=== PATIENT | female | born 1980 | race Caucasian/White ===

== ENCOUNTER → 2022-06-24 | Outpatient (CLI) | payer BC, OTHER ==
[~2022-06-24] MED LIST: CATHETER FLUSH 10 ML SYR IV PRN; HOLD METFORMIN - RECEIVED CONTRAST 20 ML VIAL IV SCH; IOHEXOL 350 MG/ML 100 ML (OMNIPAQUE 350) VIAL IV ONE; NS 100 ML (IVPB) BAG IV ONE
[2022-06-24 11:22] LABS: BASOPHILS % (AUTO) 1 % (0-10); EOSINOPHILS # (AUTO) 0.2 10^3/uL (0.0-0.3); EOSINOPHILS % (AUTO) 3 % (0-10); HEMATOCRIT 36 % (35-52); HEMOGLOBIN 12.3 g/dL (11.5-16.0); LYMPHOCYTES # (AUTO) 1.8 10^3/uL (1.0-4.0); LYMPHOCYTES % (AUTO) 29 % (12-44); MEAN CORPUSCULAR HEMOGLOBIN 32 pg (25-34); MEAN CORPUSCULAR HGB CONC 34 g/dL (32-36); MEAN CORPUSCULAR VOLUME 93 fL (80-99); MEAN PLATELET VOLUME 11.9 fL (9.0-12.2); MONOCYTES # (AUTO) 0.5 10^3/uL (0.0-1.0); MONOCYTES % (AUTO) 7 % (0-12); NEUTROPHILS # (AUTO) 3.7 10^3/uL (1.8-7.8); NEUTROPHILS % (AUTO) 60 % (42-75); PLATELET COUNT 234 10^3/uL (130-400); WHITE BLOOD COUNT 6.2 10^3/uL (4.3-11.0)
[2022-06-24 11:42] LABS: BILIRUBIN,TOTAL 0.7 MG/DL (0.1-1.0); CALCIUM 9.4 MG/DL (8.5-10.1); CREATININE SERUM 0.9 MG/DL (0.60-1.30); POTASSIUM 4.1 MMOL/L (3.6-5.0)
[2022-06-24 11:43] LABS: ALBUMIN 4.5 GM/DL (3.2-4.5); TOTAL PROTEIN 6.9 GM/DL (6.4-8.2)
[2022-06-24 14:43] LABS: TSH (THYROID ANALYZER) 1.5 UIU/ML (0.35-4.94)
--- NOTE | 2022-06-24 15:11 | Diagnostic Imaging Report ---
PROCEDURE: CT chest, abdomen, and pelvis with contrast. TECHNIQUE: Multiple contiguous axial images were obtained through the chest, abdomen, and pelvis after the administration of intravenous contrast. Auto Exposure Controls were utilized during the CT exam to meet ALARA standards for radiation dose reduction. INDICATION: Renal cell carcinoma. COMPARISON: No prior studies are available for comparison. FINDINGS: CT CHEST: No axillary lymphadenopathy is detected. No mediastinal or hilar lymphadenopathy is detected. No pericardial or pleural fluid is detected. No pulmonary infiltrates, nodules, or masses are detected. The bony structures are unremarkable. CT ABDOMEN AND PELVIS: No focal liver mass is identified. The gallbladder is surgically absent. There is no biliary ductal dilatation. The pancreas is unremarkable. There is a small cyst within the spleen. No adrenal mass is identified. The right kidney is unremarkable. There appear to be post operative changes involving the posterior aspect of the left kidney. No residual or recurrent mass is identified. There is no hydronephrosis. The aorta is nonaneurysmal. No central retroperitoneal or mesenteric lymphadenopathy is identified. The bowel loops appear to be of normal caliber. There are occasional diverticula within the sigmoid and descending colon but no evidence of acute diverticulitis. There is no ascites. The uterus and bladder are unremarkable. No pelvic lymphadenopathy is seen. There is trace free fluid in the pelvis which may be physiologic. No definite osteolytic or blastic lesions are seen. IMPRESSION: 1. Status post partial nephrectomy on the left. No residual or recurrent mass is identified. There is no evidence of thoracic, abdominal, or pelvic lymphadenopathy or metastatic disease. 2. Uncomplicated diverticulosis. Dictated by: Dictated on workstation # [id number]
== END ==
LOC: RAD FS 09:33
PROVIDERS: ATTEND Physician Assistant
DX: Z00.00 Encounter for general adult medical examination without abnormal findings (principal); L65.9 Nonscarring hair loss, unspecified; Z90.5 Acquired absence of kidney; Z85.528 Personal history of other malignant neoplasm of kidney
CPT/HCPCS: 36415; 71260; 74177; 80053; 80061; 82306; 84443; 85025